=== PATIENT | female | born 1935 | race Caucasian/White ===

== ENCOUNTER 2016-11-12 19:57 | Inpatient (IN) | payer MEDICARE ==
[~2016-11-12] VITALS: Ht 195.6 cm; Wt 73.9 kg
[2016-11-12] MEDS ORDERED: ASPIRIN 81 MG CHEW TAB ONE (23:17)
[2016-11-13] VITALS (9 sets, daily range): BP systolic 162–215; RESP 18; TEMP 97.6–98.3; Ht 195.6 cm; Wt 73.9 kg
[2016-11-13] MEDS ORDERED: SALINE FLUSH 10 ML FLUSH PRN (03:40)
[2016-11-13] MEDS ORDERED: ACETAMINOPHEN 325 MG TAB PO PRN (03:40)
[2016-11-13] MEDS: SODIUM CHLORIDE 0.9% FLUSH BAG 500 ML IV SCH (06:00)
[2016-11-13] MEDS: DOCUSATE SOD 100 MG CAP PO SCH ×2 (09:00→21:01)
[2016-11-13] MEDS ORDERED: ASPIRIN 81 MG CHEW TAB PO SCH ×2 (09:00)
[2016-11-13] MEDS: FAMOTIDINE 20 MG TAB PO SCH ×2 (09:51→21:01)
[2016-11-13] MEDS: SALINE FLUSH 10 ML FLUSH SCH ×2 (09:52→21:00)
[2016-11-13] MEDS ORDERED: MISSING DOSE XX ONE (10:20)
[2016-11-13] MEDS ORDERED: GLUCAGON 1 MG VIAL IM PRN (11:45)
[2016-11-13] MEDS ORDERED: DEXTROSE 50% SYRINGE 50 ML IV PRN (11:45)
[2016-11-13] MEDS: ENOXAPARIN 40 MG/0.4 ML SYR SUBQ SCH (12:59)
[2016-11-13] MEDS ORDERED: LABETALOL 100 MG/20 ML VIAL IV PUSH PRN (14:50)
[2016-11-13] MEDS: CLOPIDOGREL 75 MG TAB PO SCH (17:22)
[2016-11-14] VITALS (7 sets, daily range): BP systolic 115–210; RESP 18; TEMP 97.6–98.2
[2016-11-14] MEDS: SODIUM CHLORIDE 0.9% FLUSH BAG 500 ML IV SCH (01:25)
[2016-11-14] MEDS ORDERED: MISSING DOSE XX ONE (09:05)
[2016-11-14] MEDS: CLOPIDOGREL 75 MG TAB PO SCH (09:20)
[2016-11-14] MEDS: FAMOTIDINE 20 MG TAB PO SCH ×2 (09:21→20:35)
[2016-11-14] MEDS: DOCUSATE SOD 100 MG CAP PO SCH ×2 (09:21→20:35)
[2016-11-14] MEDS: SALINE FLUSH 10 ML FLUSH SCH ×2 (09:21→20:26)
[2016-11-14] MEDS: ENOXAPARIN 40 MG/0.4 ML SYR SUBQ SCH (09:22)
[2016-11-14] MEDS: Atorvastatin 40 MG TAB PO SCH (20:27)
[2016-11-15] VITALS (9 sets, daily range): BP systolic 113–215; RESP 18–20; TEMP 97.4–98.7
[2016-11-15] MEDS: SODIUM CHLORIDE 0.9% FLUSH BAG 500 ML IV SCH (03:55)
[2016-11-15] MEDS: SALINE FLUSH 10 ML FLUSH SCH ×2 (08:42→21:10)
[2016-11-15] MEDS: CLOPIDOGREL 75 MG TAB PO SCH (08:43)
[2016-11-15] MEDS: DOCUSATE SOD 100 MG CAP PO SCH ×2 (08:43→21:09)
[2016-11-15] MEDS: FAMOTIDINE 20 MG TAB PO SCH ×2 (08:43→21:10)
[2016-11-15] MEDS: ENOXAPARIN 40 MG/0.4 ML SYR SUBQ SCH (08:45)
[2016-11-15] MEDS: LISINOPRIL/HCTZ 20/12.5 TAB PO SCH (21:10)
[2016-11-15] MEDS: Atorvastatin 40 MG TAB PO SCH (21:10)
[2016-11-16] VITALS: BP_SYST 170; RESP 18; TEMP 97.5
[2016-11-16 04:11] VITALS: BP_SYST 169; RESP 18; TEMP 98
[2016-11-16] MEDS: SODIUM CHLORIDE 0.9% FLUSH BAG 500 ML IV SCH (06:00)
[2016-11-16 07:17] VITALS: BP_SYST 163; RESP 18; TEMP 98.5
[2016-11-16] MEDS: DOCUSATE SOD 100 MG CAP PO SCH (07:47)
[2016-11-16] MEDS: CLOPIDOGREL 75 MG TAB PO SCH (07:48)
[2016-11-16] MEDS: LISINOPRIL/HCTZ 20/12.5 TAB PO SCH (07:48)
[2016-11-16] MEDS: FAMOTIDINE 20 MG TAB PO SCH (07:48)
[2016-11-16] MEDS: SALINE FLUSH 10 ML FLUSH SCH (07:50)
[2016-11-16] MEDS: ENOXAPARIN 40 MG/0.4 ML SYR SUBQ SCH (07:50)
[2016-11-16 11:04] VITALS: BP_SYST 166; RESP 18; TEMP 98.5
[2016-11-16 15:49] VITALS: BP_SYST 140; RESP 18; TEMP 97.7
[2016-11-16 16:31] VITALS: BP_SYST 163; RESP 18; TEMP 98.5
== END 2016-11-16 19:38 | DRG 65 ==
LOC: ENRESERVDT → ENRESERVTM → ER 19:57 → ENPENDDIS 11-13 03:49 → EMR 11-13 03:49 → PCU 11-13 05:18
PROVIDERS: ADMIT Internal Medicine; ATTEND Internal Medicine
DX: I63.9 Cerebral infarction, unspecified (principal); G81.94 Hemiplegia, unspecified affecting left nondominant side; I11.9 Hypertensive heart disease without heart failure; E78.5 Hyperlipidemia, unspecified; I27.2 Other secondary pulmonary hypertension
CPT/HCPCS: 36415; 70450; 70551; 71010; 80048; 80053; 80061; 81001; 82947; 83036; 84439; 84443; 85025; 85384; 85610; 85730; 93005; 93306; 93880; 99232; 99239